=== PATIENT | female | born 1960 | race Caucasian/White ===

== ENCOUNTER → 2016-12-16 | Outpatient (CLI) | payer OTHER ==
--- NOTE | 2016-12-16 10:27 | DI ---
XR SHOULDER MIN 2VW,12/16/2016 9:16 AM: Clinical History: Left shoulder pain. Previous Exam: None at this facility. Findings: 3 views of the left shoulder are obtained, and demonstrate anatomic alignment without fractures. The adjacent left lung and chest wall are unremarkable. Impression: Normal left shoulder.
--- NOTE | 2016-12-16 10:29 | DI ---
XR HIP COMPLETE MIN 2VW U/L,12/16/2016 9:16 AM: Clinical History: Status post fall with left hip pain. Previous Exam: None at this facility. Findings: 3 views of the left hip are obtained, and demonstrate anatomic alignment without fractures. There are some mild degenerative changes of both hips. There are mild degenerative changes of the lumbar spine and sacroiliac joints as well. A nonobstructive bowel gas pattern is seen. Impression: No fractures.
== END ==
LOC: MOB RAD 09:17
DX: M25.512 Pain in left shoulder (principal); M25.552 Pain in left hip; W00.0XXA Fall on same level due to ice and snow, initial encounter
CPT/HCPCS: 73030; 73502